=== PATIENT | female | born 1940 | race African-American/Black ===

== ENCOUNTER 2018-10-14 16:58 | Emergency (ER) | payer OTHER ==
[~2018-10-14] VITALS: Ht 152.4 cm; Wt 68.0 kg
[~2018-10-14 16:58] MED LIST: AMLO5TAB6 PO; ATOR10TA51 PO; DIPHENHYDRAMINE PO; FAMO20TA12 PO; GLU500 PO; HYDR-4420 PO; LEVO0.1T32 PO; LORA10TA19 PO; ORE25 PO; PRED20TA5 PO
--- NOTE | 2018-10-14 17:00 | NUR ---
DR. ANN MADE AWARE OF PT BP
--- NOTE | 2018-10-14 17:00 | NUR ---
PT AMBULATED TO BED 1
--- NOTE | 2018-10-14 17:05 | NUR ---
78 Y F BIB SELF C/O R FOOT PAIN. PT STATES SHE STUBBED HER TOE ON 10/12/18 AGAINST A TREADMILL BOX. +ROM, +PEDAL PULSE, +REDNESS, +SWELLING, -ECCYMOSIS. PAIN 04/02. BED IS DOWN, LOCKED, BED RAIL X 1, ERMD NOTIFIED.
--- NOTE | 2018-10-14 17:05 | NUR ---
BP IS NOW 197/80. PT STATES SHE TAKES HER BP MEDICATION ON TIME. PT STATES "THE ER MAKES ME NERVOUS SO MY BP RISES". PMH- HTN, DM, HIGH CHOLESTEROL, ARTHRITIS, THYROID RX- PT DOESN'T RECALL ALL THE NAMES
[2018-10-14 17:13] VITALS: BP 224/88
--- NOTE | 2018-10-14 19:07 | NUR ---
REPORT GIVEN TO YORDAN RODRIGUEZ
--- NOTE | 2018-10-14 19:07 | NUR ---
RECEIVED REPORT FROM MICHAEL LOPEZ.
--- NOTE | 2018-10-14 19:21 | NUR ---
XRAY AT BEDSIDE.
[2018-10-14] MEDS ORDERED: LOSA25TA43 PO (19:55)
[2018-10-14] MEDS ORDERED: ORE25 PO (19:55)
[2018-10-14 20:01] VITALS: BP 170/95
== END 2018-10-14 20:01 | disposition home or self-care (01) ==
LOC: MED 16:58
DX: S93.601A Unspecified sprain of right foot, initial encounter (principal); E11.65 Type 2 diabetes mellitus with hyperglycemia; F41.9 Anxiety disorder, unspecified; E07.9 Disorder of thyroid, unspecified; Z79.899 Other long term (current) drug therapy; Z79.84 Long term (current) use of oral hypoglycemic drugs; Z88.8 Allergy status to other drugs, medicaments and biological substances; W22.8XXA Striking against or struck by other objects, initial encounter; Y93.89 Activity, other specified; Y92.89 Other specified places as the place of occurrence of the external cause; Y99.8 Other external cause status
CPT/HCPCS: 73630; 99283; Q0092

== ENCOUNTER 2019-07-13 12:30 | Emergency (ER) | payer OTHER ==
[~2019-07-13] VITALS: Ht 149.9 cm; Wt 72.6 kg
[~2019-07-13 12:30] MED LIST changes: +LOSA25TA43 PO
--- NOTE | 2019-07-13 12:40 | NUR ---
Patient ambulated to bed 5. RN evaluating patient at bedside.
--- NOTE | 2019-07-13 12:47 | NUR ---
78 Y/O F C/O LEFT ARM PAIN X 1 MONTH WITH SLIGHT SWELLING. PT STATES THE PAIN BEGAN AFTER A DOCTOR APPOINTMENT WHEN HER BLOOD PRESSURE WAS TAKEN. PT HAS PAIN 6/10 WITH RANGE OF MOTION, NO PAIN WITH NO MOVMENT. PT HAS NOT TAKEN ANYTHING AT HOME FOR THE PAIN. 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 PT POSITIONED FOR COMFORT, SEATED IN THE CHAIR AT BEDSIDE. ALLERGIES: LISINOPRIL MEDHX: HTN
--- NOTE | 2019-07-13 13:17 | NUR ---
Dr. Gonzales is evaluating the patient at bedside.
--- NOTE | 2019-07-13 13:50 | NUR ---
EKG AT BEDSIDE.
--- NOTE | 2019-07-13 13:50 | NUR ---
cardiac cath tech at bedside.
--- NOTE | 2019-07-13 14:09 | NUR ---
ULTRASOUND AT BEDSIDE.
[2019-07-13 15:00] LABS: BASOPHILS # (AUTO) 0.1 K/uL (0.00-0.22); BASOPHILS % (AUTO) 0.9 % (0.0-2.0); EOSINOPHILS # (AUTO) 0.1 K/uL (0-0.4); EOSINOPHILS % (AUTO) 1.5 % (0.0-4.0); HEMATOCRIT 38.8 % (36-48); HEMOGLOBIN 12.7 g/dL (12.0-16.0); LYMPHOCYTES # (AUTO) 1.9 K/uL (2.5-16.5); MEAN CORPUSCULAR HEMOGLOBIN 31 pg (27-31); MEAN CORPUSCULAR HGB CONC 33 g/dL (33-37); MEAN CORPUSCULAR VOLUME 94.6 fL (80-94); MONOCYTES % (AUTO) 10.8 % (1.7-9.3); NEUTROPHILS % (AUTO) 65.8 % (42.2-75.2); PLATELET COUNT (AUTO) 430 K/uL (140-450); RED CELL DISTRIBUTION WIDTH 16.1 % (11.6-13.7); WHITE BLOOD COUNT (AUTO) 9.1 K/uL (4.8-10.8)
--- NOTE | 2019-07-13 15:46 | NUR ---
PT DOES NOT WANT BLOOD PRESSURE RECHECKED, STATES IT HURTS HER ARM TOO MUCH AND SHE IS AFRAID OF GETTING INJURED FROM IT.
[2019-07-13 16:11] LABS: ANION GAP 19.2 (8-16); CHLORIDE 103 mmol/L (98-107); CREATININE 1.2 mg/dL (0.6-1.3); GLUCOSE 111 mg/dL (74-106); POTASSIUM 3.2 mmol/L (3.5-5.1); SODIUM SERUM 142 mmol/L (136-145); UREA NITROGEN, BLOOD 13 mg/dL (7-18)
[2019-07-13 16:16] LABS: ALBUMIN 3.5 g/dL (3.4-5.0); ASPARTATE AMINOTRANSFERASE 19 U/L (15-37); TOTAL BILIRUBIN 0.8 mg/dL (0.0-1.0)
--- NOTE | 2019-07-13 16:30 | NUR ---
INFORMED PT WAITING FOR TEST RESULTS TO COME BACK, GAVE PT JUICE/CRACKERS. POSITONED FOR PAIN. PT REFUSED B/P CHECK.
[2019-07-13] MEDS ORDERED: IBUPROFEN 600 MG TAB PO ONE (18:05)
[2019-07-13] MEDS ORDERED: DEXAMETHASONE 10 MG/ML VIAL IM ONE (18:05)
--- NOTE | 2019-07-13 19:13 | NUR ---
GAVE REPORT TO MICHAEL PAYNE FOR CHANGE OF SHIFT.
== END 2019-07-13 19:22 | disposition home or self-care (01) ==
LOC: MED 12:30
DX: M79.602 Pain in left arm (principal); R20.2 Paresthesia of skin; M19.022 Primary osteoarthritis, left elbow; E11.9 Type 2 diabetes mellitus without complications; I10 Essential (primary) hypertension; E07.9 Disorder of thyroid, unspecified; Z79.84 Long term (current) use of oral hypoglycemic drugs; Z79.899 Other long term (current) drug therapy; Z88.8 Allergy status to other drugs, medicaments and biological substances
CPT/HCPCS: 36415; 71045; 73080; 80053; 83880; 84484; 84550; 85025; 85379; 85610; 93005; 93971; 96372; 99284; J1100; Q0092